=== PATIENT | male | born 1940 | race Caucasian/White ===

== ENCOUNTER 2019-12-19 10:55 | Outpatient (CLI) | payer MEDICARE, SELFPAY ==
[2019-12-19 11:14] LABS: Basophils Absolute Auto 0.04 K/mm3 (0.00-0.10); Basophils Percent Auto 0.6 % (0.0-1.0); Eosinophils Absolute Auto 0.44 K/mm3 (0.02-0.50); Eosinophils Percent Auto 6.2 % (1.0-6.0); Hematocrit 44.5 % (37.0-46.0); Hemoglobin 15.2 g/dL (12.4-15.3); Immature Granulocyte Absolute 0.03 K/mm3 (0.00-0.00); Immature Granulocyte Percent A 0.4 % (0.0-0.0); Immature Platelet Fraction Pct 5.3 % (1.0-7.0); Lymphocytes Absolute Auto 0.94 K/mm3 (1.10-4.50); Lymphocytes Percent Auto 13.2 % (18.0-42.0); Mean Corpuscular HGB Conc 34.2 g/dL (32.0-36.0); Mean Corpuscular Hemoglobin 32.2 pg (27.0-31.0); Mean Corpuscular Volume 94.3 fL (78.0-102.0); Mean Platelet Volume 11.6 fl (8.7-11.0); Monocytes Absolute Auto 0.74 K/mm3 (0.10-0.90); Monocytes Percent Auto 10.4 % (2.0-11.0); Neutrophils Absolute Auto 4.9 K/mm3 (1.7-7.2); Neutrophils Percent Auto 69.2 % (50.0-70.0); Platelet Count Result 128 K/mm3 (150-420); Red Blood Count 4.72 M/mm3 (4.70-6.10); Red Cell Distribution Width 13.4 % (11.6-14.4); White Blood Count 7.1 K/mm3 (4.8-10.8)
[2019-12-19 11:38] LABS: Hemoglobin A1C 6.2 % (<5.7)
[2019-12-19 12:46] LABS: Alanine Aminotransferase 31 U/L (16-63); Alkaline Phosphatase 72 U/L (46-116); Anion Gap 12.6 mmol/L (7-16); Aspartate Amino Transferase 26 U/L (15-37); Bilirubin,Total 0.8 mg/dL (0.00-1.00); Blood Urea Nitrogen 17 mg/dL (7-18); Calcium 9.2 mg/dL (8.5-10.1); Carbon Dioxide 29 mmol/L (21-32); Chloride 101 mmol/L (98-108); Estimated Glomerular Filt Rate 57; Glucose 114 mg/dL (70-99); Osmolality Calculated 288 mOsm/kg (285-295); Potassium 4.6 mmol/L (3.5-5.1); Prostate Specific Antigen 1.2 ng/mL (< OR = 4.0); Sodium 138 mmol/L (136-145); Total Protein 6.8 g/dL (6.4-8.2)
== END 2019-12-19 10:56 | disposition home or self-care (01) ==
PROVIDERS: PCP Internal Medicine; Visit Provider Internal Medicine
DX: I10 Essential (primary) hypertension (principal); E11.9 Type 2 diabetes mellitus without complications; Z12.5 Encounter for screening for malignant neoplasm of prostate
CPT/HCPCS: 36415; 80053; 83036; 84153; 85025; 85055; G0103

== ENCOUNTER 2020-06-12 12:17 | Outpatient (CLI) | payer MEDICARE, SELFPAY ==
[2020-06-12 12:33] LABS: Basophils Absolute Auto 0.04 K/mm3 (0.00-0.10); Basophils Percent Auto 0.5 % (0.0-1.0); Eosinophils Absolute Auto 0.38 K/mm3 (0.02-0.50); Eosinophils Percent Auto 4.8 % (1.0-6.0); Hematocrit 44.8 % (37.0-46.0); Hemoglobin 15.3 g/dL (12.4-15.3); Immature Granulocyte Absolute 0.03 K/mm3 (0.00-0.00); Immature Granulocyte Percent A 0.4 % (0.0-0.0); Lymphocytes Absolute Auto 1.13 K/mm3 (1.10-4.50); Lymphocytes Percent Auto 14.2 % (18.0-42.0); Mean Corpuscular HGB Conc 34.2 g/dL (32.0-36.0); Mean Corpuscular Hemoglobin 32.8 pg (27.0-31.0); Mean Corpuscular Volume 95.9 fL (78.0-102.0); Mean Platelet Volume 11.8 fl (8.7-11.0); Monocytes Absolute Auto 0.82 K/mm3 (0.10-0.90); Monocytes Percent Auto 10.3 % (2.0-11.0); Neutrophils Absolute Auto 5.6 K/mm3 (1.7-7.2); Neutrophils Percent Auto 69.8 % (50.0-70.0); Platelet Count Result 131 K/mm3 (150-420); Red Blood Count 4.67 M/mm3 (4.70-6.10); Red Cell Distribution Width 13.1 % (11.6-14.4)
[2020-06-12 12:44] LABS: Hemoglobin A1C 6.1 % (<5.7)
[2020-06-12 13:12] LABS: Alanine Aminotransferase 30 U/L (16-63); Albumin Level 3.7 g/dL (3.4-5.0); Alkaline Phosphatase 89 U/L (46-116); Anion Gap 7 mmol/L (8-16); Aspartate Amino Transferase 29 U/L (15-37); Bilirubin,Total 0.9 mg/dL (0.00-1.00); Blood Urea Nitrogen 18 mg/dL (7-18); CRP 0.2 mg/dL (0.0-0.9); Calcium 8.9 mg/dL (8.5-10.1); Carbon Dioxide 31 mmol/L (21-32); Chloride 99 mmol/L (98-108); Estimated Glomerular Filt Rate 54; Glucose 140 mg/dL (70-99); Osmolality Calculated 287 mOsm/kg (285-295); Potassium 4.1 mmol/L (3.5-5.1); Sodium 137 mmol/L (136-145); Total Protein 6.7 g/dL (6.4-8.2)
== END 2020-06-12 12:18 | disposition home or self-care (01) ==
LOC: CHSLAB 12:20
PROVIDERS: PCP Internal Medicine; Visit Provider Internal Medicine
DX: M13.0 Polyarthritis, unspecified (principal); I10 Essential (primary) hypertension; E11.9 Type 2 diabetes mellitus without complications
CPT/HCPCS: 36415; 80053; 83036; 85025; 86140

== ENCOUNTER 2020-07-02 08:01 | Outpatient (RCR) | payer MEDICARE, SELFPAY ==
--- NOTE | 2020-07-02 09:08 | PTOPEVAL ---
Thank you for referring Jason Arizmendi to [facility].? The patient is scheduled to be seen for therapy? ____x/week for ___ weeks. Please review, sign, date and return this plan of care ANNEL. I agree with and certify that the following plan of care is medically necessary. Referring Physician Date Admitting Provider: Attending Provider: Demond Toledo MD Referring Provider: *PT Outpatient Evaluation Start: 07/02/20 08:10 Freq: Status: Active Protocol: Document 07/02/20 08:10 [facility] (Rec: 07/02/20 09:08 [facility] [id number]) Therapy Assessment Status Assessment Status Assessment Status Evaluation Evaluation Information Problem Diagnosis osteoarthritis, unsteady gait Onset 06/30/20 Subjective Information patient arrives to therapy in Query Text:As Reported By Patient/ a wheelchair stating it is too Family hard to walk. he reports is coming to therapy for an evaluation to get a wheelchair . he reports is needs the chair due to his arthritis, pain in the knees/shoulders/ neck, and due to inability to walk long distances. Pain Assessment Timing of Pain Assessment Timing of Pain Assessment Assessment Pain Scale Pain Scale Used Numeric (1 - 10) Self Report Pain Assessment Generalized Reported Pain Level 0 Greatest Pain Intensity 9 Pain Aggravating Factors Stair Climbing,Walking,Weight Bearing/Standing Pain Score Pain Score 0: Self Report Upper Extremity Range of Motion General Upper Extremity Range of Motion Gross Upper Extremity Range of Motion WFL L shoulder and elbow Comments mobility WFL R elbow mobility, but shoulder is limited to 45 degrees flexion/abduction due to RTC tear/weakness Lower Extremity Range of Motion General Lower Extremity Range of Motion Gross Lower Extremity Range of Motion WFL bilateral knee and hip Comments mobility Lower Extremity Muscle Strength Testing General Lower Extremity Strength Gross Lower Extremity Strength 3+/5 overall hip and 4+/5 overall knee strength of the R LE 3+/5 overall hip and 4/5 overall knee strength of the L LE with increased pain with mmt of the L knee extension Upper Extremity Muscle Strength Testing General Upper Extremity Strength Gross Upper Extremity Strength Comments
== END 2020-07-02 09:16 | disposition home or self-care (01) ==
LOC: CHSPT 08:01
PROVIDERS: PCP Internal Medicine; Visit Provider Internal Medicine
DX: M19.90 Unspecified osteoarthritis, unspecified site (principal); R26.9 Unspecified abnormalities of gait and mobility
CPT/HCPCS: 97161

== ENCOUNTER 2020-07-31 12:35 | Outpatient (CLI) | payer MEDICARE, SELFPAY ==
--- NOTE | ~2020-07-31 | CT_ITS ---
EXAMINATION: CT brain wo con DATE: 07/31/2020 13:37 INDICATION: Ataxia. Muscle weakness. TECHNIQUE: Computed tomography (CT) of the head was performed without intravenous contrast. The mA wa s adjusted according to patient size. Iterative reconstruction technique was employed. The dose-lengt h product was 605.33 mGy-cm. COMPARISON: None FINDINGS: There are scattered areas of low attenuation in the cerebral white matter. There is no intr acranial hemorrhage, acute infarction, or abnormal intracranial mass lesion. The ventricles are tenisha l in size. There are likely changes of ocular lens replacement surgeries. The mastoid air cells are n ormal. There is mild mucosal thickening in the paranasal sinuses. IMPRESSION: 1. Mild nonspecific cerebral white matter disease, which likely represents chronic small vessel ische lillian disease. Reviewed, dictated and finalized at location A. IMPRESSION: 1. Mild nonspecific cerebral white matter disease, which likely represents insurance claim approver frederick small vessel ischemic disease.
--- NOTE | ~2020-07-31 | XR_ITS ---
EXAMINATION: XR chest 2V DATE: 07/31/2020 13:26 INDICATION: 3 months of worsening generalized weakness TECHNIQUE: frontal and lateral views of the chest were obtained. COMPARISON: Chest radiograph dated 08/05/2017 FINDINGS: The lungs remain clear with no focal airspace opacities, pulmonary edema, pleural effusion or pneumot horax. The cardiomediastinal silhouette is normal. Mild to moderate thoracic spondylosis and severe l eft and moderate right glenohumeral osteoarthritis. IMPRESSION: 1. No acute cardiopulmonary disease. Reviewed, dictated and finalized at location B.
[2020-07-31 12:54] LABS: Basophils Absolute Auto 0.02 K/mm3 (0.00-0.10); Basophils Percent Auto 0.2 % (0.0-1.0); Eosinophils Absolute Auto 0.04 K/mm3 (0.02-0.50); Eosinophils Percent Auto 0.4 % (1.0-6.0); Hematocrit 41.1 % (37.0-46.0); Hemoglobin 14.2 g/dL (12.4-15.3); Immature Granulocyte Absolute 0.05 K/mm3 (0.00-0.00); Immature Granulocyte Percent A 0.5 % (0.0-0.0); Lymphocytes Absolute Auto 1.11 K/mm3 (1.10-4.50); Lymphocytes Percent Auto 11.8 % (18.0-42.0); Mean Corpuscular HGB Conc 34.5 g/dL (32.0-36.0); Mean Corpuscular Hemoglobin 32.5 pg (27.0-31.0); Mean Corpuscular Volume 94.1 fL (78.0-102.0); Mean Platelet Volume 11.2 fl (8.7-11.0); Monocytes Absolute Auto 0.97 K/mm3 (0.10-0.90); Monocytes Percent Auto 10.4 % (2.0-11.0); Neutrophils Absolute Auto 7.2 K/mm3 (1.7-7.2); Neutrophils Percent Auto 76.7 % (50.0-70.0); Platelet Count Result 153 K/mm3 (150-420); Red Blood Count 4.37 M/mm3 (4.70-6.10); Red Cell Distribution Width 13.2 % (11.6-14.4); White Blood Count 9.4 K/mm3 (4.8-10.8)
[2020-07-31 14:04] LABS: Alanine Aminotransferase 34 U/L (16-63); Albumin Level 3.7 g/dL (3.4-5.0); Alkaline Phosphatase 81 U/L (46-116); Anion Gap 7 mmol/L (8-16); Aspartate Amino Transferase 40 U/L (15-37); Bilirubin,Total 0.7 mg/dL (0.00-1.00); Blood Urea Nitrogen 24 mg/dL (7-18); CRP < 0.5 mg/dL (0.0-0.9); Calcium 8.8 mg/dL (8.5-10.1); Carbon Dioxide 30 mmol/L (21-32); Chloride 95 mmol/L (98-108); Creatine Kinase 336 U/L (39-308); Estimated Glomerular Filt Rate > 60; Glucose 120 mg/dL (70-99); Magnesium 1.9 mg/dL (1.8-2.4); Osmolality Calculated 279 mOsm/kg (285-295); Phosphorus 3.5 mg/dL (2.6-4.7); Potassium 4.1 mmol/L (3.5-5.1); Sodium 132 mmol/L (136-145); Total Protein 6.1 g/dL (6.4-8.2)
[2020-08-04 12:09] LABS: Parathyroid Intact 45 pg/mL (14-64)
[2020-08-06 01:51] LABS: Aldolase 12.6 U/L (<=8.1)
== END 2020-07-31 12:36 | disposition home or self-care (01) ==
LOC: CHSLAB 12:37
PROVIDERS: PCP Internal Medicine; Visit Provider Internal Medicine
DX: R27.0 Ataxia, unspecified (principal); R53.1 Weakness
CPT/HCPCS: 36415; 70450; 71046; 80053; 82085; 82550; 83735; 83970; 84100; 84443; 85025; 86140

== ENCOUNTER 2020-09-26 21:03 | Emergency (ER) | payer MEDICARE, SELFPAY ==
--- NOTE | ~2020-09-26 | XR_ITS ---
EXAMINATION: XR chest 1V portable INDICATION: Shortness of breath TECHNIQUE: Portable AP chest at 2153 hours COMPARISON: 07/31/2020 FINDINGS: There are minimal airspace opacities of the lung bases. The cardiomediastinal silhouette is normal. No pleural effusion or pneumothorax is identified. There is moderate right and severe left g lenohumeral joint osteoarthritis. Partially imaged surgical changes are noted in the lower cervical s pine. IMPRESSION: 1. Minimal airspace opacities of the lung bases, consistent with atelectasis versus pneumonia. Reviewed, dictated and finalized at location A. FLOPPER IMPRESSION: 1. Minimal airspace opacities of the lung bases, consistent with atelectasis ve rsus pneumonia.
[2020-09-26 21:03] VITALS: BP 150/91; PULSE 81; RESP 16; TEMP 36; O2SAT 99
--- NOTE | 2020-09-26 21:31 | ECG_ITS ---
Measurements Intervals [place] Rate: 80 P: TN: 0 QRS: -90 QRSD: 129 T: 20 QT: 407 QTc: 470 Interpretive Statements ATRIAL FIBRILLATION VENTRICULAR PREMATURE COMPLEX RIGHT BUNDLE BRANCH BLOCK INFERIOR INFARCT, AGE INDETERMINATE ABNORMAL ECG Electronically Signed On 09-27-2020 7:18:15 DIVE SUPERVISOR by Brooks Reyes D.O.
[2020-09-26 21:58] LABS: Add Urine Microscopic? YES; Appearance Urine Sl Cloudy (Clear); Bilirubin Urine 1+ (Negative); Blood Urine 3+ (Negative); Color Urine Amber (Yellow); Glucose Urine UA Negative (Negative); Ketones Urine 1+ (Negative); Leukocyte Esterase Ur Trace LEU/UL (Negative); Nitrate Urine Negative (Negative); Protein Urine Trace (Negative); pH Urine 6.5 (5.0-8.0)
[2020-09-26 21:58] LABS: Basophils Absolute Auto 0.01 K/mm3 (0.00-0.10); Basophils Percent Auto 0.1 % (0.0-1.0); Eosinophils Absolute Auto 0.01 K/mm3 (0.02-0.50); Eosinophils Percent Auto 0.1 % (1.0-6.0); Hematocrit 44.5 % (37.0-46.0); Hemoglobin 15.3 g/dL (12.4-15.3); Immature Granulocyte Absolute 0.07 K/mm3 (0.00-0.00); Immature Granulocyte Percent A 0.6 % (0.0-0.0); Lymphocytes Absolute Auto 0.71 K/mm3 (1.10-4.50); Lymphocytes Percent Auto 6.1 % (18.0-42.0); Mean Corpuscular HGB Conc 34.4 g/dL (32.0-36.0); Mean Corpuscular Hemoglobin 32.1 pg (27.0-31.0); Mean Corpuscular Volume 93.5 fL (78.0-102.0); Mean Platelet Volume 11.7 fl (8.7-11.0); Monocytes Absolute Auto 0.89 K/mm3 (0.10-0.90); Monocytes Percent Auto 7.7 % (2.0-11.0); Neutrophils Absolute Auto 9.9 K/mm3 (1.7-7.2); Neutrophils Percent Auto 85.4 % (50.0-70.0); Platelet Count Result 127 K/mm3 (150-420); Red Blood Count 4.76 M/mm3 (4.70-6.10); Red Cell Distribution Width 13.2 % (11.6-14.4); White Blood Count 11.6 K/mm3 (4.8-10.8)
[2020-09-26 22:07] LABS: RBC Urine >75 /hpf (0-2); Squamous Epithelial Cell Urine Rare /hpf (Few); WBC Urine 0-3 /hpf (0-3)
[2020-09-26 22:08] LABS: Bacteria Urine 1+ /hpf; Calcium Oxalate Crystals Urine Present /hpf
[2020-09-26 22:13] LABS: Alanine Aminotransferase 32 U/L (16-63); Albumin Level 2.7 g/dL (3.4-5.0); Alkaline Phosphatase 72 U/L (46-116); Anion Gap 6 mmol/L (8-16); Aspartate Amino Transferase 21 U/L (15-37); Bilirubin,Total 1.2 mg/dL (0.00-1.00); Blood Urea Nitrogen 20 mg/dL (7-18); CRP 8.3 mg/dL (0.0-0.9); Calcium 8.7 mg/dL (8.5-10.1); Carbon Dioxide 28 mmol/L (21-32); Chloride 99 mmol/L (98-108); Estimated CRCL calculation 72 ml/min; Estimated Glomerular Filt Rate > 60; Glucose 116 mg/dL (70-99); Osmolality Calculated 279 mOsm/kg (285-295); Sodium 133 mmol/L (136-145); Total Protein 5.8 g/dL (6.4-8.2); Troponin I 16.2 ng/L (0.00-60.4)
[2020-09-26 22:15] LABS: Lactic Acid Reflex 1.3 mmol/L (0.4-2.0)
--- NOTE | 2020-09-26 22:18 | ED.AMS ---
HPI - Altered Mental Status General Chief Complaint: Urogenital-Male Stated Complaint: AMB Time Seen by Provider: 09/26/20 21:30 Source: patient and family Mode of arrival: EMS Limitations: no limitations History of Present Illness HPI narrative: 80-year-old man 6 days postop from cervical spine surgery for stenosis brought to the emergency department from long term for reported altered mental status. He complains about the physical therapy he has been receiving in the long term however he states he has been having no pain and other than having a decreased appetite, has no other complaints. He has had no fever, chills, cough, trouble breathing, abdominal pain, nausea, vomiting, diarrhea. Staff noticed that he has some red-tinged cloudy urine from his catheter. He has yet to stand at the long term with the family's goal is to get him to be weight-bearing so they can take him home for further rehabilitation. MD complaint: confusion Onset (ago): day(s) (1) Timing confirmed by: caregiver ( And long term) Severity: moderate Consistency of symptoms: getting Worse Associated symptoms: denies other symptoms Related Data Home Medications Medication Instructions Recorded Confirmed acetaminophen 650 mg PO Q6-12H 09/26/20 09/26/20 allopurinol 300 mg PO DAILY 09/26/20 09/26/20 aspirin 325 mg PO DAILY 09/26/20 09/26/20 carvedilol 6.25 mg PO BID 09/26/20 09/26/20 diphenhydramine-zinc acetate 1 applic TOPICAL TID PRN 09/26/20 09/26/20 doxazosin 4 mg PO HS 09/26/20 09/26/20 duloxetine 20 mg PO BID 09/26/20 09/26/20 finasteride 5 mg PO DAILY 09/26/20 09/26/20 hydrocodone-acetaminophen 1 tablet PO Q8-10H PRN 09/26/20 09/26/20 Allergies Allergy/AdvReac Type Severity Reaction Status Date / Time meperidine Allergy Severe RED Verified 10/22/19 08:39 STREAKS UP ARM Penicillins Allergy Severe HIVES Verified 10/22/19 08:39 iodine Allergy Unknown Verified 09/26/20 22:07 CONSTRAST MEDIA Allergy Severe HIVES Uncoded 10/22/19 08:39 Contrast Media Allergy Unknown HIVES Uncoded 10/22/19 08:39 Review of Systems Constitutional: Constitutional: Denies chills and Denies fever(s) ENT: Denies dysphagia, Denies nasal congestion and Denies sore throat Cardiovascular: Cardiovascular: Denies chest pain and Denies radiating jaw, neck or arm pain Respiratory: Respiratory: Denies cough, Denies dyspnea and Denies wheezing Gastrointestinal: Gastrointestinal: Denies abdominal pain, Denies diarrhea, Denies nausea and Denies vomiting Genitourinary: Genitourinary: Reports hematuria Musculoskeletal: Musculoskeletal: Denies arthralgias and Denies joint swelling Integumentary/Breasts: Skin/Breast: Denies pruritus, Denies erythema and Denies rash Neurologic: Denies vertigo, Denies dizziness and Denies syncope Hematologic/Lymphatic: Hematologic/Lymphatic: Denies easy bleeding and Denies easy bruising Allergic/Immunologic: Allergic/Immunologic: Denies lip swelling and Denies tongue swelling PMFSH Past Medical History Medical History (Updated 09/26/20 @ 22:27 by Kael Hernandez MD) Chronic atrial fibrillation COPD (chronic obstructive pulmonary disease) Diabetes Dyspnea GERD (gastroesophageal reflux disease) Gout HTN (hypertension) Hypercholesterolemia Obesity Obstructive sleep apnea Peripheral vascular disease Spinal stenosis Systolic and diastolic CHF, chronic Surgical History Surgical History H/O cervical spine surgery Social History Social History (Updated 09/26/20 @ 22:27 by Kael Hernandez MD) Smoking status: Never smoker Substance use: never Living arrangements: with family Exam Const: General: no acute distress and alert Nutritional Appearance: obese Limitations: no limitations Other: Oriented to day of the week, month and year. Knows birthday, place and person HENMT: Head: normal to inspection Ears: external ears normal, TM's normal bert
[2020-09-26] MEDS: SODIUM CHLORIDE 0.9% IV 500 ML 999 ML IV CONT (22:39)
[2020-09-26 22:43] VITALS: BP 136/93; PULSE 69; O2SAT 95
[2020-09-26] MEDS: HYDROcodone/acetaminophen (*CRX) 5-325 MG TABLET 1 TAB PO (22:56)
[2020-09-26 23:07] VITALS: BP 153/80; PULSE 76; RESP 20; O2SAT 94
--- NOTE | 2020-09-26 23:18 | PC.NURSE ---
Call placed to [facility] and report to Abdirizak on pt. return. Call to [facility] for pt. trtansfer back to [place] given.
== END 2020-09-26 23:32 ==
PROVIDERS: Emergency Provider Emergency Medicine; PCP Internal Medicine
DX: E86.0 Dehydration (principal); J44.9 Chronic obstructive pulmonary disease, unspecified; E11.9 Type 2 diabetes mellitus without complications; I10 Essential (primary) hypertension; E78.00 Pure hypercholesterolemia, unspecified
CPT/HCPCS: 36415; 71045; 80053; 81001; 83605; 84484; 85025; 86140; 87040; 93005; 99284; A9270; J7040

== ENCOUNTER 2020-10-10 12:34 | Observation (INO) | payer MEDICARE, SELFPAY ==
[2020-10-10 12:35] VITALS: BP 117/84; PULSE 74; RESP 20; TEMP 36.9; O2SAT 99
[2020-10-10 12:46] LABS: Add Urine Microscopic? YES; Appearance Urine Cloudy (Clear); Bilirubin Urine 1+ (Negative); Blood Urine 3+ (Negative); Color Urine Yellow (Yellow); Glucose Urine UA Negative (Negative); Ketones Urine Negative (Negative); Leukocyte Esterase Ur 2+ LEU/UL (Negative); Nitrate Urine Negative (Negative); Protein Urine 2+ (Negative); Urobilinogen Urine 0.2 mg/dL (0.2-1.0); pH Urine 6.5 (5.0-8.0)
[2020-10-10 12:56] LABS: Amorphous Sediment Urine Few; Bacteria Urine 4+ /hpf; Squamous Epithelial Cell Urine Few /hpf (Few); WBC Clumps Urine Present /hpf; WBC Urine >75 /hpf (0-3)
[2020-10-10 13:30] LABS: Basophils Absolute Auto 0.02 K/mm3 (0.00-0.10); Basophils Percent Auto 0.2 % (0.0-1.0); Eosinophils Absolute Auto 0.08 K/mm3 (0.02-0.50); Eosinophils Percent Auto 0.7 % (1.0-6.0); Hematocrit 36.8 % (37.0-46.0); Hemoglobin 12.5 g/dL (12.4-15.3); Immature Granulocyte Percent A 0.9 % (0.0-0.0); Immature Platelet Fraction Pct 4.3 % (1.0-7.0); Lymphocytes Absolute Auto 0.54 K/mm3 (1.10-4.50); Lymphocytes Percent Auto 4.6 % (18.0-42.0); Mean Corpuscular Hemoglobin 31.6 pg (27.0-31.0); Mean Corpuscular Volume 92.9 fL (78.0-102.0); Mean Platelet Volume 11.1 fl (8.7-11.0); Monocytes Absolute Auto 1.13 K/mm3 (0.10-0.90); Monocytes Percent Auto 9.7 % (2.0-11.0); Neutrophils Absolute Auto 9.8 K/mm3 (1.7-7.2); Neutrophils Percent Auto 83.9 % (50.0-70.0); Platelet Count Result 141 K/mm3 (150-420); Red Blood Count 3.96 M/mm3 (4.70-6.10); Red Cell Distribution Width 12.7 % (11.6-14.4); White Blood Count 11.6 K/mm3 (4.8-10.8)
--- NOTE | 2020-10-10 13:34 | ED.WEAKNESS ---
HPI - Weakness General Source: patient and family Mode of arrival: wheelchair Limitations: clinical condition History of Present Illness HPI Narrative: Daughter brings father in statins he has been weak and she feels he has a UTI again MD Complaint: generalized weakness Onset (ago): day(s) (several) Location: generalized Severity: severe Relieving factors: none Exacerbating factors: none Context: recent illness Related Data Home Medications Medication Instructions Recorded Confirmed acetaminophen 650 mg PO Q6-12H 09/26/20 10/10/20 allopurinol 300 mg PO DAILY 09/26/20 10/10/20 aspirin 325 mg PO DAILY 09/26/20 10/10/20 carvedilol 6.25 mg PO BID 09/26/20 10/10/20 diphenhydramine-zinc acetate 1 applic TOPICAL TID PRN 09/26/20 10/10/20 doxazosin 4 mg PO HS 09/26/20 10/10/20 duloxetine 20 mg PO BID 09/26/20 10/10/20 finasteride 5 mg PO DAILY 09/26/20 10/10/20 amlodipine 5 mg PO DAILY 10/10/20 10/10/20 prednisone 10 mg PO DAILY 10/10/20 10/10/20 spironolacton-hydrochlorothiaz 1 tablet PO DAILY 10/10/20 10/10/20 tamsulosin 0.4 mg PO DAILY 10/10/20 10/10/20 terazosin 5 mg PO HS 10/10/20 10/10/20 Allergies Allergy/AdvReac Type Severity Reaction Status Date / Time meperidine Allergy Severe RED Verified 10/22/19 08:39 STREAKS UP ARM Penicillins Allergy Severe HIVES Verified 10/22/19 08:39 iohexol Allergy Hives Verified 10/10/20 12:51 [From contrast - CT, X-RAY] Review of Systems Constitutional: Comments: Weak, had recent spinal fusion and required jules cath after that, was not able to void. Eyes: Eyes: Reports no additional eye complaints ENT: Reports system reviewed and no additional complaints, except as documented Cardiovascular: Cardiovascular: Reports no additional cardiovascular complaints Respiratory: Respiratory: Reports no additional respiratory complaints Gastrointestinal: Gastrointestinal: Reports no additional gastrointestinal complaints Genitourinary: Genitourinary: Reports no additional male genitourinary complaints Musculoskeletal: Musculoskeletal: Reports no additional musculoskeletal complaints Integumentary/Breasts: Skin/Breast: Reports system reviewed and no additional complaints, except as docu Neurologic: Reports system reviewed and no additional complaints, except as documented Psychiatric: Psychiatric: Reports no additional psychiatric complaints Endocrine: Endocrine: Reports no additional endocrine complaints Hematologic/Lymphatic: Hematologic/Lymphatic: Reports no additional hematologic/lymphatic complaints Allergic/Immunologic: Allergic/Immunologic: Reports no additional allergic/immunologic complaints PMFSH Past Medical History Medical History Chronic atrial fibrillation COPD (chronic obstructive pulmonary disease) Diabetes Dyspnea GERD (gastroesophageal reflux disease) Gout HTN (hypertension) Hypercholesterolemia Obesity Obstructive sleep apnea Peripheral vascular disease Spinal stenosis Systolic and diastolic CHF, chronic Surgical History Surgical History H/O cervical spine surgery Family History Family History Mother Cerebrovascular accident Sibling Diabetes mellitus Social History Social History Smoking packs per day: 2 Smoking cigarettes per day: 40.0 Smoking status: Former smoker Tobacco type: cigarettes Smoking end date: 10/17/93 Alcohol intake: current Drinks per week: 7 Substance use: never Gender identity (if verbalized by the patient): Male Sexual Orientation (if Verbalized by the Patient): Straight or Heterosexual Spiritual care concerns: No Exam Const: General: alert and ill appearing Orientation/consciousness: patient oriented x3 HENMT: Head: normal to inspection Ears: TM's normal bilaterally Face and
[2020-10-10 13:45] LABS: Alanine Aminotransferase 34 U/L (16-63); Albumin Level 2.4 g/dL (3.4-5.0); Alkaline Phosphatase 71 U/L (46-116); Anion Gap 6 mmol/L (8-16); Aspartate Amino Transferase 20 U/L (15-37); Bilirubin,Total 0.7 mg/dL (0.00-1.00); Blood Urea Nitrogen 10 mg/dL (7-18); Calcium 8.5 mg/dL (8.5-10.1); Carbon Dioxide 29 mmol/L (21-32); Chloride 95 mmol/L (98-108); Estimated Glomerular Filt Rate > 60; Glucose 170 mg/dL (70-99); Osmolality Calculated 273 mOsm/kg (285-295); Potassium 2.9 mmol/L (3.5-5.1); Sodium 130 mmol/L (136-145); Total Protein 5.5 g/dL (6.4-8.2)
[2020-10-10 13:48] LABS: Lactic Acid Reflex 2.4 mmol/L (0.4-2.0)
[2020-10-10] MEDS: SODIUM CHLORIDE 0.9% IV 500 ML 999 ML IV CONT (14:05)
[2020-10-10] MEDS: POTASSIUM CHLORIDE 20 MEQ TABLET 40 MEQ PO (14:06)
[2020-10-10 15:30] VITALS: BP 123/75; PULSE 73; O2SAT 96
[2020-10-10 16:00] VITALS: BP 96/52; PULSE 65; RESP 18; TEMP 36.9; O2SAT 95
[2020-10-10 16:07] VITALS: BMI 30.8
[2020-10-10 16:24] LABS: Reflex Lactic Acid Yes or No Add Lactic
[2020-10-10] MEDS: SODIUM CHLORIDE 0.9% IV 1,000 ML 100 ML IV CONT (16:32)
[2020-10-10 17:05] LABS: Lactic Acid 1.6 mmol/L (0.4-2.0)
[2020-10-10] MEDS: DULoxetine HCL 20 MG CAPSULE.DR PO (17:26)
[2020-10-10] MEDS: GENTAMICIN SULFATE INJ 240 MG in DEXTROSE 5% 100 ML 100 MG IVPB (17:44)
--- NOTE | 2020-10-10 21:20 | PC.NURSE ---
hipolito wants dr/n.p to look over med list, lots of duplicate blood pressure medications, hipolito is going to hold off on verifying terazosyn and doxyzosyn due to possibility of blood pressure medication error
[2020-10-11] VITALS: BP 104/74; PULSE 80; RESP 20; TEMP 36.8; O2SAT 94
--- NOTE | 2020-10-11 00:36 | PC.NURSE ---
Julius called and asked for verification of pt's medication orders. Dr. Antonio notified but he was with a patient. ER nurse saod he would call back when available.
--- NOTE | 2020-10-11 00:59 | PC.NURSE ---
Dr. Antonio returned call regarding clarification of pt's medications. New orders received and noted.
--- NOTE | 2020-10-11 01:03 | PC.NURSE ---
Notified [facility] regarding clarification of orders and new orders.
[2020-10-11] MEDS: DOXAZOSIN MESYLATE 2 MG TABLET 4 MG PO ×2 (01:06→20:44)
[2020-10-11] MEDS: SODIUM CHLORIDE 0.9% IV 1,000 ML 100 ML IV CONT ×2 (05:11→15:04)
[2020-10-11 05:28] LABS: Anion Gap 9 mmol/L (8-16); Blood Urea Nitrogen 10 mg/dL (7-18); Carbon Dioxide 27 mmol/L (21-32); Chloride 101 mmol/L (98-108); Estimated CRCL calculation 88 ml/min; Estimated Glomerular Filt Rate > 60; Glucose 94 mg/dL (70-99); Osmolality Calculated 283 mOsm/kg (285-295); Sodium 137 mmol/L (136-145)
--- NOTE | 2020-10-11 07:38 | PM.IMHP ---
H&P: HPI History of Present Illness Date/Time: 10/11/20 07:38 Chief Complaint: Pt / Family members believes he has a UTI. Narrative: Jason Arizmendi is a 80 year old male who comes in with concern for a UTI. Pt had cervical surgery in the recent past which caused loss of bowel and bladder function and required a second surgery. As a result Pt has an indwelling Ann catheter. Pt was started on Rocephin and given a 1 time does of Gentamicin in the ER. The indwelling Ann catheter was changed as well in the ER. Review of Systems Constitutional: Constitutional: Reports no additional constitutional complaints, Denies body ache(s), Denies chills, Denies fever(s), Denies headache(s) and Denies weakness Cardiovascular: Cardiovascular: Reports no additional cardiovascular complaints, Denies chest pain, Denies chest pain at rest and Denies chest pain with activity Respiratory: Respiratory: Reports no additional respiratory complaints, Denies dyspnea and Denies dyspnea on exertion Gastrointestinal: Gastrointestinal: Reports no additional gastrointestinal complaints PMFSH Past Medical History Medical History Chronic atrial fibrillation COPD (chronic obstructive pulmonary disease) Diabetes Dyspnea GERD (gastroesophageal reflux disease) Gout HTN (hypertension) Hypercholesterolemia Obesity Obstructive sleep apnea Peripheral vascular disease Spinal stenosis Systolic and diastolic CHF, chronic Surgical History Surgical History H/O cervical spine surgery Family History Family History Mother Cerebrovascular accident Sibling Diabetes mellitus Social History Social History Smoking packs per day: 2 Smoking cigarettes per day: 40.0 Smoking status: Former smoker Tobacco type: cigarettes Smoking end date: 10/17/93 Alcohol intake: current Drinks per week: 7 Substance use: never Gender identity (if verbalized by the patient): Male Sexual Orientation (if Verbalized by the Patient): Straight or Heterosexual Spiritual care concerns: No Meds Home Medications and Allergies Home Medications Medication Instructions Recorded Confirmed Type acetaminophen 650 mg PO Q6-12H 09/26/20 10/10/20 History allopurinol 300 mg PO DAILY 09/26/20 10/10/20 History aspirin 325 mg PO DAILY 09/26/20 10/10/20 History carvedilol 6.25 mg PO BID 09/26/20 10/10/20 History diphenhydramine-zinc acetate 1 applic TOPICAL TID PRN 09/26/20 10/10/20 History doxazosin 4 mg PO HS 09/26/20 10/10/20 History duloxetine 20 mg PO BID 09/26/20 10/10/20 History finasteride 5 mg PO DAILY 09/26/20 10/10/20 History amlodipine 5 mg PO DAILY 10/10/20 10/10/20 History prednisone 10 mg PO DAILY 10/10/20 10/10/20 History spironolacton-hydrochlorothiaz 1 tablet PO DAILY 10/10/20 10/10/20 History tamsulosin 0.4 mg PO DAILY 10/10/20 10/10/20 History terazosin 5 mg PO HS 10/10/20 10/10/20 History Allergies Allergy/AdvReac Type Severity Reaction Status Date / Time meperidine Allergy Severe RED Verified 10/22/19 08:39 STREAKS UP ARM Penicillins Allergy Severe HIVES Verified 10/22/19 08:39 iohexol Allergy Hives Verified 10/10/20 12:51 [From contrast - CT, X-RAY] Vital Signs Vital Signs - 24 hr 10/10/20 12:35 10/10/20 15:30 10/10/20 16:00 Temperature 98.4 F 98.4 F Pulse Rate 74 73 65 Respiratory Rate 20 18 Blood Pressure 117/84 123/75 96/52 L Pulse Oximetry 99 96 95 10/11/20 00:00 Temperature 98.2 F Pulse Rate 80 Respiratory Rate 20 Blood Pressure 104/74 Pulse Oximetry 94 Exam Const: General: cooperative, comfortable, no acute distress, alert and awake Nutritional Appearance: overweight Resp: Effort & Inspection: normal respiratory effort Auscultation: clear to auscultation bilaterally Card
[2020-10-11] MEDS: ACETAMINOPHEN 325 MG TABLET 650 MG PO ×2 (08:06→20:43)
[2020-10-11] MEDS: POTASSIUM CHLORIDE 20 MEQ TABLET 40 MEQ PO (10:03)
[2020-10-11] MEDS: TAMSULOSIN HCL 0.4 MG CAPSULE PO (10:03)
[2020-10-11] MEDS: DULoxetine HCL 20 MG CAPSULE.DR PO ×2 (10:03→16:07)
[2020-10-11] MEDS: predniSONE 10 MG TABLET PO (10:03)
[2020-10-11] MEDS: amLODIPine BESYLATE 5 MG TABLET PO (10:03)
[2020-10-11] MEDS: ENOXAPARIN 40 MG/0.4 ML SYRINGE SUB-Q (10:03)
[2020-10-11 10:04] VITALS: PULSE 81
[2020-10-11] MEDS: allopurinoL 300 MG TABLET PO (10:04)
[2020-10-11] MEDS: carvediloL 6.25 MG TABLET PO ×2 (10:04→16:07)
[2020-10-11] MEDS: FINASTERIDE 5 MG TABLET PO (10:04)
[2020-10-11] MEDS: ASPIRIN 325 MG ENTERIC TABLET PO (10:04)
[2020-10-11 16:00] VITALS: BP 126/75; PULSE 71; RESP 18; TEMP 36.9; O2SAT 95
[2020-10-11 16:07] VITALS: PULSE 71
--- NOTE | 2020-10-11 19:34 | PM.EVENT ---
Event Note Event Note Event Note: I have examined the patient and reviewed the chart. I discussed the patient's care with Sandra Gonzalez APN and agree with his assessment and plan.
--- NOTE | 2020-10-11 21:20 | PC.NURSE ---
bipap applied, sterile water used, pt took pills no difficulties, call light in reach, jules to gravity
[2020-10-12] VITALS: BP 134/85; PULSE 81; RESP 20; TEMP 36.9; O2SAT 94
[2020-10-12] MEDS: LIDOCAINE HCL 2% JELLY 5 ML TUBE 1 APPLIC MUCOUS MEM (00:10)
[2020-10-12] MEDS: SODIUM CHLORIDE 0.9% IV 1,000 ML 100 ML IV CONT (00:19)
[2020-10-12 03:21] LABS: Occult Blood Negative (Negative)
[2020-10-12 08:00] VITALS: BP 128/78; PULSE 68; RESP 18; TEMP 36.8; O2SAT 94
[2020-10-12 08:36] LABS: Hematocrit 35.5 % (37.0-46.0); Hemoglobin 11.9 g/dL (12.4-15.3); Mean Corpuscular HGB Conc 33.5 g/dL (32.0-36.0); Mean Corpuscular Hemoglobin 31.4 pg (27.0-31.0); Mean Corpuscular Volume 93.7 fL (78.0-102.0); Platelet Count Result 147 K/mm3 (150-420); Red Blood Count 3.79 M/mm3 (4.70-6.10); Red Cell Distribution Width 12.8 % (11.6-14.4); White Blood Count 6.6 K/mm3 (4.8-10.8)
[2020-10-12 08:37] LABS: Mean Platelet Volume 11.4 fl (8.7-11.0)
[2020-10-12 08:50] LABS: Anion Gap 8 mmol/L (8-16); Blood Urea Nitrogen 6 mg/dL (7-18); Calcium 8.5 mg/dL (8.5-10.1); Carbon Dioxide 28 mmol/L (21-32); Chloride 104 mmol/L (98-108); Estimated CRCL calculation 87 ml/min; Estimated Glomerular Filt Rate > 60; Glucose 85 mg/dL (70-99); Osmolality Calculated 286 mOsm/kg (285-295); Potassium 2.7 mmol/L (3.5-5.1); Sodium 140 mmol/L (136-145)
[2020-10-12 09:29] LABS: Magnesium 1.4 mg/dL (1.8-2.4)
[2020-10-12 09:38] VITALS: PULSE 68
[2020-10-12] MEDS: FINASTERIDE 5 MG TABLET PO (09:38)
[2020-10-12] MEDS: DULoxetine HCL 20 MG CAPSULE.DR PO ×2 (09:38→17:08)
[2020-10-12] MEDS: ENOXAPARIN 40 MG/0.4 ML SYRINGE SUB-Q (09:38)
[2020-10-12] MEDS: ASPIRIN 325 MG ENTERIC TABLET PO (09:38)
[2020-10-12] MEDS: carvediloL 6.25 MG TABLET PO ×2 (09:38→17:07)
[2020-10-12] MEDS: allopurinoL 300 MG TABLET PO (09:38)
[2020-10-12] MEDS: TAMSULOSIN HCL 0.4 MG CAPSULE PO (09:38)
[2020-10-12] MEDS: predniSONE 10 MG TABLET PO (09:39)
[2020-10-12] MEDS: amLODIPine BESYLATE 5 MG TABLET PO (09:39)
[2020-10-12] MEDS: POTASSIUM CHLORIDE 20 MEQ TABLET 40 MEQ PO (09:44)
[2020-10-12] MEDS: MAGNESIUM SULF 4 GM/WATER100ML 4 GM/100 ML BAG IVPB (10:21)
[2020-10-12] MEDS: LOPERAMIDE HCL 2 MG CAPSULE 4 MG PO ×3 (10:54→21:14)
--- NOTE | 2020-10-12 12:26 | PM.IMPN ---
Progress Note: A&P Assessment and Plan (1) Acute pyelonephritis: Code(s): N10 - Acute pyelonephritis Status: Acute Assessment and Plan: 10/11/2020 Continue Rocephin, blood and urine cultures pending, Ann changed in the ER, renal function good 10/12/2020 Continue with IV Ab, on DC will change to PO, attempting to see if Pt is able to urinate on his own (2) HTN (hypertension): Code(s): I10 - Essential (primary) hypertension Status: Acute Assessment and Plan: 10/11/2020 Continue current home medications, monitor VS, make adjustments to medications as needed. 10/12/2020 vital signs stable (3) COPD (chronic obstructive pulmonary disease): Code(s): J44.9 - Chronic obstructive pulmonary disease, unspecified Status: Acute Assessment and Plan: 10/11/2020 Continue home medications, will consider adding Nebulizers or increasing steroids if needed, at this time Pt is stable 10/12/2020 Pt has not had any issues at this time (4) Hypokalemia: Code(s): E87.6 - Hypokalemia Status: Acute Assessment and Plan: 10/11/2020 Potassium was 3 this AM, 40 mEq given, will monitor lab work 10/12/2020 Potassium was 2.7 this AM, checked Mag and this was 1.4, both replaced 2x 40 mEq K and 4 gm Mag, recheck in AM. (5) Obstructive sleep apnea: Code(s): G47.33 - Obstructive sleep apnea (adult) (pediatric) Status: Inactive Assessment and Plan: 10/11/2020 Discussed this with family when they called and requested Pt's CPAP to be delivered for Pt to use. 10/12/2020 Pt refused to use his CPAP last night. Subjective Date/time seen: 10/12/20 12:26 Pt has no complaints today. Spoke with family who wanted to try removing the Ann to see if Pt was able to urinate on his own. Pt was in agreement with this. Pt denies CP, SOB, increased WOB, abdominal pain. Review of Systems Constitutional: Constitutional: Reports no additional constitutional complaints Cardiovascular: Cardiovascular: Reports no additional cardiovascular complaints, Denies chest pain, Denies chest pain at rest and Denies chest pain with activity Respiratory: Respiratory: Reports no additional respiratory complaints Gastrointestinal: Gastrointestinal: Reports no additional gastrointestinal complaints Genitourinary: Comments: admits to a little discomfort at the tip of his penis Exam Const: General: cooperative, comfortable and no acute distress Nutritional Appearance: overweight Resp: Effort & Inspection: normal respiratory effort Auscultation: clear to auscultation bilaterally Cardio: Rate: regular rate Rhythm: regular rhythm Heart sounds: S1 normal heart sound present and S2 normal heart sound present Extrem: General: no pedal edema Objective Data Vital Signs Vital Signs: Vital Signs - 24 hr 10/11/20 16:00 10/11/20 16:07 10/12/20 00:00 Temperature 98.5 F 98.4 F Pulse Rate 71 71 81 Respiratory Rate 18 20 Blood Pressure 126/75 134/85 Pulse Oximetry 95 94 10/12/20 08:00 10/12/20 09:38 Temperature 98.3 F Pulse Rate 68 68 Respiratory Rate 18 Blood Pressure 128/78 Pulse Oximetry 94 Intake/Output Intake/Output: Intake & Output 10/09/20 10/10/20 10/11/20 10/12/20 23:59 23:59 23:59 23:59 Intake Total 910 3868.333 1800 Output Total 600 3525 2150 Balance 310 343.333 -350 Meds/Results Medications: Active Medications Generic Name Dose Route Start Last Admin Trade Name Nickq PRN Reason Stop Dose Admin Acetaminophen 650 mg 10/10/20 15:06 10/11/20 20:43 Acetaminophen 325 Mg Tablet PO 650 mg Q4H PRN Administration Mild Pain (1-3) or Fever Allopurinol 300 mg 10/11/20 09:00 10/12/20 09:38 Allopurinol 300 Mg Tablet PO 300 mg DAILY PRERNA Administration Amlodipine Besylate 5 mg 10/11/20 09:00 10/12/20 09:39 Amlodipine Besylate 5 Mg Tablet PO 5 mg DAILY PRERNA Administration Aspirin 325 mg 10/11/20 09:00 10/12/20 09:38 Aspiri
[2020-10-12 15:54] VITALS: BP 104/76; PULSE 68; RESP 18; TEMP 36.8; O2SAT 94
[2020-10-12 17:07] VITALS: PULSE 68
--- NOTE | 2020-10-12 19:12 | PM.OP ---
Procedure Note - Brief Procedure Note - Brief Date of procedure: 10/12/20 Pre-op diagnosis: unsure Surgeon: Anthony Antonio MD He appears to be doing well tonight and has had no difficulty voiding after jules was removed. Discharge soon.
[2020-10-12] MEDS: DOXAZOSIN MESYLATE 2 MG TABLET 4 MG PO (20:25)
[2020-10-13] VITALS: BP 140/96; PULSE 76; RESP 20; TEMP 36.4; O2SAT 94
[2020-10-13] MEDS: LOPERAMIDE HCL 2 MG CAPSULE 4 MG PO ×2 (05:27→09:55)
[2020-10-13 07:04] LABS: Hematocrit 36.4 % (37.0-46.0); Hemoglobin 12.1 g/dL (12.4-15.3); Mean Corpuscular HGB Conc 33.2 g/dL (32.0-36.0); Mean Corpuscular Hemoglobin 30.9 pg (27.0-31.0); Mean Corpuscular Volume 92.9 fL (78.0-102.0); Mean Platelet Volume 11.1 fl (8.7-11.0); Platelet Count Result 167 K/mm3 (150-420); Red Blood Count 3.92 M/mm3 (4.70-6.10); Red Cell Distribution Width 12.7 % (11.6-14.4); White Blood Count 6.4 K/mm3 (4.8-10.8)
[2020-10-13 07:18] LABS: Anion Gap 7 mmol/L (8-16); Blood Urea Nitrogen 6 mg/dL (7-18); Calcium 8.6 mg/dL (8.5-10.1); Carbon Dioxide 28 mmol/L (21-32); Chloride 104 mmol/L (98-108); Estimated CRCL calculation 94 ml/min; Estimated Glomerular Filt Rate > 60; Glucose 82 mg/dL (70-99); Magnesium 1.7 mg/dL (1.8-2.4); Osmolality Calculated 284 mOsm/kg (285-295); Potassium 2.8 mmol/L (3.5-5.1); Sodium 139 mmol/L (136-145)
[2020-10-13 08:00] VITALS: BP 121/74; PULSE 74; RESP 20; TEMP 36.4; O2SAT 94
[2020-10-13] MEDS: MAGNESIUM SULF 4 GM/WATER100ML 4 GM/100 ML BAG IVPB (08:38)
[2020-10-13] MEDS: ENOXAPARIN 40 MG/0.4 ML SYRINGE SUB-Q (09:02)
[2020-10-13] MEDS: ACETAMINOPHEN 325 MG TABLET 650 MG PO (09:03)
[2020-10-13] MEDS: TAMSULOSIN HCL 0.4 MG CAPSULE PO (09:03)
[2020-10-13] MEDS: predniSONE 10 MG TABLET PO (09:03)
[2020-10-13] MEDS: FINASTERIDE 5 MG TABLET PO (09:03)
[2020-10-13 09:04] VITALS: PULSE 74
[2020-10-13] MEDS: carvediloL 6.25 MG TABLET PO (09:04)
[2020-10-13] MEDS: ASPIRIN 325 MG ENTERIC TABLET PO (09:04)
[2020-10-13] MEDS: amLODIPine BESYLATE 5 MG TABLET PO (09:04)
[2020-10-13] MEDS: allopurinoL 300 MG TABLET PO (09:05)
[2020-10-13] MEDS: DULoxetine HCL 20 MG CAPSULE.DR PO (09:05)
[2020-10-13] MEDS: POTASSIUM CHLORIDE 20 MEQ TABLET 40 MEQ PO ×2 (09:06→09:56)
[2020-10-13] MEDS: KCL 20 MEQ/SW 100 ML 100 ML 50 MEQ IVPB (09:56)
[2020-10-13 13:15] LABS: Anion Gap 7 mmol/L (8-16); Blood Urea Nitrogen 7 mg/dL (7-18); Calcium 8.3 mg/dL (8.5-10.1); Carbon Dioxide 28 mmol/L (21-32); Chloride 101 mmol/L (98-108); Estimated CRCL calculation 75 ml/min; Estimated Glomerular Filt Rate > 60; Glucose 180 mg/dL (70-99); Magnesium 1.9 mg/dL (1.8-2.4); Osmolality Calculated 285 mOsm/kg (285-295); Potassium 3.2 mmol/L (3.5-5.1); Sodium 136 mmol/L (136-145)
--- NOTE | 2020-10-13 13:22 | PM.DS ---
DS: Admitting Diagnosis Admitting Diagnosis Admitting Diagnosis: pyelonephritis COPD hypertension electrolyte imbalance <Trent Gonzalez ENTRY TECH-C - Last Filed: 10/13/20 13:47> DS: Discharge Diagnosis Discharge Diagnosis (1) Acute pyelonephritis: Code(s): N10 - Acute pyelonephritis <Trent Gonzalez ENTRY TECH-C - Last Filed: 10/13/20 13:47> Status: Acute <Trent Gonzalez ENTRY TECH-C - Last Filed: 10/13/20 13:47> Assessment and Plan: 10/11/2020 Continue Rocephin, blood and urine cultures pending, Ann changed in the ER, renal function good 10/12/2020 Continue with IV Ab, on DC will change to PO, attempting to see if Pt is able to urinate on his own 10/13/2020 will send patient home on Cipro, patient has been able to void on his own after Ann was removed, post void bladder scan showed 647 and 621 mL and patient was unable to empty his bladder, will be replacing Ann and sending home with that <Trent Gonzalez ENTRY TECH-C - Last Filed: 10/13/20 13:47> (2) HTN (hypertension): Code(s): I10 - Essential (primary) hypertension <Trent Gonzalez ENTRY TECH-C - Last Filed: 10/13/20 13:47> Status: Acute <Trent Gonzalez ENTRY TECH-C - Last Filed: 10/13/20 13:47> Assessment and Plan: 10/11/2020 Continue current home medications, monitor VS, make adjustments to medications as needed. 10/12/2020 vital signs stable 10/13/2020 vital signs remained stable patient is afebrile and on room air <Trent Gonzalez ENTRY TECH-C - Last Filed: 10/13/20 13:47> (3) COPD (chronic obstructive pulmonary disease): Code(s): J44.9 - Chronic obstructive pulmonary disease, unspecified <Trent Gonzalez ENTRY TECH-C - Last Filed: 10/13/20 13:47> Status: Acute <Trent Osunazachary ENTRY TECH-C - Last Filed: 10/13/20 13:47> Assessment and Plan: 10/11/2020 Continue home medications, will consider adding Nebulizers or increasing steroids if needed, at this time Pt is stable 10/12/2020 Pt has not had any issues at this time 10/13/2020 No issues <MARCUS Harrison - Last Filed: 10/13/20 13:47> (4) Hypokalemia: Code(s): E87.6 - Hypokalemia <MARCUS Harrison - Last Filed: 10/13/20 13:47> Status: Acute <MARCUS Harrison - Last Filed: 10/13/20 13:47> Assessment and Plan: 10/11/2020 Potassium was 3 this AM, 40 mEq given, will monitor lab work 10/12/2020 Potassium was 2.7 this AM, checked Mag and this was 1.4, both replaced 2x 40 mEq K and 4 gm Mag, recheck in AM. 10/13/2020 Mag is 1.9 potassium 3.2 will send patient home with Mag oxide and daily potassium patient will need to follow-up with primary care provider within the week to check lab values <MARCUS Harrison - Last Filed: 10/13/20 13:47> (5) Obstructive sleep apnea: Code(s): G47.33 - Obstructive sleep apnea (adult) (pediatric) <MARCUS Harrison - Last Filed: 10/13/20 13:47> Status: Inactive <MARCUS Harrison - Last Filed: 10/13/20 13:47> Assessment and Plan: 10/11/2020 Discussed this with family when they called and requested Pt's CPAP to be delivered for Pt to use. 10/12/2020 Pt refused to use his CPAP last night. 10/13/2020 patient refuses to wear his CPAP at night <MARCUS Harrison - Last Filed: 10/13/20 13:47> DS: Summary Hospital Course Hospital Course: electrolytes have normalized no issues with COPD vital signs been stable antibiotics delivered will send home on antibiotics p.o. <MARCUS Harrison - Last Filed: 10/13/20 13:47> Time Spent with Patient Time attestation: Total time spent providing and/or coordinating discharge services: < 30 minutes <MARCUS Harrison - Last Filed: 10/13/20 13:47> Exam Const: General: cooperative, comfortable, no acute distress, alert and awake <MARCUS Harrison - Last Filed: 10/13/20 13:47> Resp: Effort & Inspection: normal respiratory effort <MARCUS Harrison
--- NOTE | 2020-10-20 10:23 | PC.NURSE ---
10/12 ceftriaxone 1 Gram stopped 7065 10/13 kcl stopped 1156
--- NOTE | 2020-10-23 12:14 | PC.NURSE ---
Spouse states they received and understood his DC instructions. Has no other questions or comments.
--- NOTE | 2020-10-30 13:05 | PC.NURSE ---
Gentamycin stopped 10/10 1848. Ceftriaxone 1 gram stopped 10/12 1733
== END 2020-10-13 15:00 | disposition home or self-care (01) ==
LOC: CHSED 12:39 → CHS2ND 15:25
PROVIDERS: Emergency Medicine; Nurse Practitioner Family; Admitting Provider Emergency Medicine; Emergency Provider Emergency Medicine; PCP Internal Medicine; Visit Provider Emergency Medicine
DX: N10 Acute pyelonephritis (principal); B96.5 Pseudomonas (aeruginosa) (mallei) (pseudomallei) as the cause of diseases classified elsewhere; E87.6 Hypokalemia; I11.0 Hypertensive heart disease with heart failure; I50.42 Chronic combined systolic (congestive) and diastolic (congestive) heart failure; I48.20 Chronic atrial fibrillation, unspecified; J44.9 Chronic obstructive pulmonary disease, unspecified; E11.51 Type 2 diabetes mellitus with diabetic peripheral angiopathy without gangrene; E78.00 Pure hypercholesterolemia, unspecified; K21.9 Gastro-esophageal reflux disease without esophagitis; E66.9 Obesity, unspecified; G47.33 Obstructive sleep apnea (adult) (pediatric); M48.00 Spinal stenosis, site unspecified; Z87.891 Personal history of nicotine dependence
CPT/HCPCS: 36415; 80048; 80053; 81001; 83605; 83735; 85025; 85027; 85055; 87040; 87077; 87086; 87088; 87186; 87324; 89055; 96361; 96365; 96366; 96367; 96372; 96374; 96376; 99285; A9270; G0378; J0696; J1580; J1650; J3475; J3480; J7030; J7040; J7512

== ENCOUNTER 2020-12-02 14:48 | Outpatient (CLI) | payer MEDICARE, SELFPAY | END 2020-12-02 14:49 | disposition home or self-care (01) | LOC: CHSLAB 14:51 | PROVIDERS: PCP Internal Medicine; Visit Provider Internal Medicine | DX: R19.7 Diarrhea, unspecified (principal) | CPT/HCPCS: 87324 ==

== ENCOUNTER 2020-12-04 10:31 | Outpatient (NON) | payer MEDICARE, SELFPAY ==
[2020-12-04 10:40] LABS: Basophils Absolute Auto 0.03 K/mm3 (0.00-0.10); Basophils Percent Auto 0.3 % (0.0-1.0); Eosinophils Absolute Auto 0.19 K/mm3 (0.02-0.50); Eosinophils Percent Auto 1.9 % (1.0-6.0); Hemoglobin 13.1 g/dL (12.4-15.3); Lymphocytes Absolute Auto 1.15 K/mm3 (1.10-4.50); Lymphocytes Percent Auto 11.4 % (18.0-42.0); Mean Corpuscular HGB Conc 32.8 g/dL (32.0-36.0); Mean Corpuscular Volume 94.8 fL (78.0-102.0); Mean Platelet Volume 11.8 fl (8.7-11.0); Monocytes Absolute Auto 0.87 K/mm3 (0.10-0.90); Monocytes Percent Auto 8.6 % (2.0-11.0); Neutrophils Absolute Auto 7.8 K/mm3 (1.7-7.2); Neutrophils Percent Auto 76.8 % (50.0-70.0); Platelet Count Result 152 K/mm3 (150-420); Red Blood Count 4.22 M/mm3 (4.70-6.10); Red Cell Distribution Width 14.2 % (11.6-14.4); White Blood Count 10.1 K/mm3 (4.8-10.8)
[2020-12-04 10:59] LABS: Alanine Aminotransferase 19 U/L (16-63); Albumin Level 3.2 g/dL (3.4-5.0); Alkaline Phosphatase 70 U/L (46-116); Anion Gap 7 mmol/L (8-16); Aspartate Amino Transferase 16 U/L (15-37); Bilirubin,Total 0.8 mg/dL (0.00-1.00); Blood Urea Nitrogen 13 mg/dL (7-18); Calcium 8.9 mg/dL (8.5-10.1); Carbon Dioxide 30 mmol/L (21-32); Chloride 101 mmol/L (98-108); Estimated Glomerular Filt Rate > 60; Glucose 132 mg/dL (70-99); Osmolality Calculated 288 mOsm/kg (285-295); Potassium 3.6 mmol/L (3.5-5.1); Sodium 138 mmol/L (136-145); Total Protein 5.9 g/dL (6.4-8.2)
== END 2020-12-04 10:32 ==
PROVIDERS: Visit Provider Internal Medicine
DX: D69.6 Thrombocytopenia, unspecified (principal); E11.51 Type 2 diabetes mellitus with diabetic peripheral angiopathy without gangrene; I50.30 Unspecified diastolic (congestive) heart failure
CPT/HCPCS: 36415; 80053; 85025